=== PATIENT | male | born 1995 ===

== ENCOUNTER → 2020-10-08 | Outpatient (CLI) | payer OTHER | LOC: COL.RAD 13:23 | DX: S82.102A Unspecified fracture of upper end of left tibia, initial encounter for closed fracture (principal); S16.1XXA Strain of muscle, fascia and tendon at neck level, initial encounter ==

== ENCOUNTER 2020-10-17 08:30 | Outpatient (RCR) | payer OTHER | END 2020-11-10 | disposition home or self-care (01) | LOC: WSOH | DX: S16.1XXA Strain of muscle, fascia and tendon at neck level, initial encounter (principal); M25.572 Pain in left ankle and joints of left foot; M25.562 Pain in left knee; Y99.0 Civilian activity done for income or pay ==